=== PATIENT | male | born 1980 | race Caucasian/White ===

== ENCOUNTER 2023-06-23 10:52 | Outpatient (AMB) | payer OTHER, SELFPAY ==
--- NOTE | 2023-06-23 11:06 | A.OFFPC_ITS ---
Vital Signs 06/23/23 11:17 Height 6 ft 4.77 in Weight 196 lb 2 oz BMI 23.4 BP 120/80 Blood Pressure Location Rt brachial Position Sitting Respiration 12 Pulse 75 Pulse Source Pulse Oximeter Temp 97.6 F Temp Source Oral Pulse Oximetry (%) 98 Oxygen Delivery Method Room Air Intake Visit Reasons: est care Intake Note: New patient visit. Difficulty passing stool. 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 Allergies amoxicillin Allergy (Severe, Verified 06/23/23 11:09) hives Tobacco use date assessed: 06/23/23 Dental Screening Dental Screen Date: 06/23/23 Did you have a dental visit in the last 12 months?: Yes Did you have a dental problem in the last 6 months where you did not have access to dental care?: No Was dental information given to patient?: Patient has dentist HPI HPI Comments History of Present Illness Details 42 y/o M Specialists: Health Maintenance: No medical records PFSH Family History (Updated 06/23/23 @ 11:16 by Briana Collins CMA) Father Alcoholism Hodgkin lymphoma Skin cancer Other Mental disorder Social History (Updated 06/23/23 @ 11:13 by Briana Collins CMA) Household Members: Family Household Members Other:: mother, sister, cousin Housing: House Patient Tobacco Use Status: Current everyday Tobacco user Cigarette Packs Per Day: 0.5 Years Smoked: 30 e-Cigarette/Vaping Use: Never Used service: No Current occupational status: employed Current occupation: [employer] Cognitive needs: No Hearing needs: No Vision needs: No Coding
[2023-06-23 11:17] VITALS: BP 120/80; PULSE 75; RESP 12; TEMP 36.4; O2SAT 98; BMI 23.4
--- NOTE | 2023-06-23 11:22 | MHC.PC.OV ---
Vital Signs 06/23/23 11:17 Height 6 ft 4.77 in Weight 196 lb 2 oz BMI 23.4 BP 120/80 Blood Pressure Location Rt brachial Position Sitting Respiration 12 Pulse 75 Pulse Source Pulse Oximeter Temp 97.6 F Temp Source Oral Pulse Oximetry (%) 98 Oxygen Delivery Method Room Air Intake Visit Reasons: est care Intake Note: New patient visit. Hiatal hernia, difficulty passing stools. Allergies amoxicillin Allergy (Severe, Verified 06/23/23 11:29) hives Medication List - Last Reconciled 06/23/23 by Jacinta Cm, [facility] No Known Home Meds Tobacco use date assessed: 06/23/23 HPI HPI Comments History of Present Illness Details 42 y/o M current smoker, colitis, hemorrhoids, kidney stones, hernia Specialists: None Health Maintenance: Vaccines: declines flu Here today with no medical records, Has not seen any medical providers in years. Feels like he has a rectal prolapse, anal leakage and has a hernia in R groin. Feels like he cannot empty his bowels no matter how hard i try, i feel like something is stuck there, like its blown up . Reports colon done in the past. Wearing a belt to help hernia. Unintentional wt loss of 70 lbs. + tobacco use. PFSH Family History (Updated 06/23/23 @ 11:16 by Briana Collins CMA) Father Alcoholism Hodgkin lymphoma Skin cancer Other Mental disorder Social History (Updated 06/23/23 @ 11:13 by Briana Collins CMA) Household Members: Family Household Members Other:: mother, sister, cousin Housing: House Patient Tobacco Use Status: Current everyday Tobacco user Cigarette Packs Per Day: 0.5 Cigarettes Per Day: 15 Years Smoked: 30 e-Cigarette/Vaping Use: Never Used service: No Current occupational status: employed Current occupation: [employer] Cognitive needs: No Hearing needs: No Vision needs: No Questionnaire PHQ-9 Over the last 2 weeks, how often have you been bothered by any of the following problems? 1. Little interest or pleasure in doing things: not at all 2. Feeling down, depressed, or hopeless: not at all 3. Trouble falling or staying asleep, or sleeping too much: not at all 4. Feeling tired or having little energy: not at all 5. Poor appetite or overeating: not at all 6. Feeling bad about yourself - or that you are a failure or have let yourself or your family down: not at all 7. Trouble concentrating on things, such as reading the newspaper or watching television: not at all 8. Moving or speaking so slowly that other people could have noticed. Or the opposite - being so fidgety or restless that you have been moving around a lot more than usual: not at all 9. Thoughts that you would be better off or of hurting yourself in some way: not at all Total score: 0 Depression Screening Interpretation: Negative Depression Screening Done: Yes 34770 - PHQ-9 Billing: Yes Source: Developed by Drs. Renato Ceron, Paige Waldron, Benji Marroquin and colleagues, with an educational brianne from [employer]. Thrive Questionnaire Date Thrive assessed: 06/23/23 I am a: Patient What is your living situation today?: I have a steady place to live Within the past 12 months, did the food you bought not last and you didn't have the money to get more?: Never true Within the past 12 months, did you worry whether your food would run out before you got money to buy more?: Never true Do you have trouble paying for medicines?: No Do you have trouble getting transportation to medical appointments?: No Do you have trouble paying your heating and electricity bill?: Yes Do you have trouble taking care of your child, family member or friend?: No Do you have trouble with day-to-day activities such as bathing, preparing meals, shopping, managing finances, etc.?: No Are you currently unemployed and looking for a job?: No Are you interested in more education?: No Please select the resources that you would like help with: None Currently or been in a relationship where the following occur: no concerns reported THRIVE Score: 1 AUDIT C Alcohol Use Questionnaire (AUDIT-C) 1. How often do you have a drink containing alcohol?: Monthly or less 2. How many drinks containing alcohol do you have on a typical day when you are drinking?: 1 or 2 3. How often do you have six or more drinks on one occasion?: Never Total Score: 1 Score Reviewed/Action Taken: Yes JASON-7 AMB Questionnaire JASON-7 Date JASON - 7 assessed: 06/23/23 Feeling nervous, anxious, or on edge: 0 = Not at all Not being able to stop or control worryin = Not at all Worrying too much about different things: 0 = Not at all Trouble relaxin = Not at all Being so restless that it is hard to sit still: 0 = Not at all Becoming easily annoyed or irritable: 0 = Not at all Feeling afraid as if something awful might happen: 0 = Not at all Total JASON-7 score (0-4 normal; 5-9 mild; 10-14 moderate; 15-21 severe): 0 Source: Developed by Drs. Renato Ceron, Paige Waldron, Benji Marroquin and colleagues, with an educational brianne from [employer]. JASON-7 Assessment Billing JASON-7 Assessment Tool: JASON-7 Assessment 78781 Physical exam (Primary Care) Vital Signs: Last Vital Signs Temp 97.6 F 06/23/23 11:17 Pulse 75 06/23/23 11:17 Resp 12 06/23/23 11:17 BP 120/80 06/23/23 11:17 Pulse Ox 98 06/23/23 11:17 Oxygen Delivery Method Room Air 06/23/23 11:17 BMI result Body Mass Index 23.4 Tobacco/Smoking Status: Tobacco use Status Tobacco use date assessed 06/23/23 06/23/23 11:27 Patient Tobacco Use Status Current everyday Tobacco 06/23/23 11:27 e-Cigarette/Vaping Use Never Used 06/23/23 11:27 Are you ready to quit: No Tobacco cessation counseling provided: Yes Items discussed: Other Relapse Prevention: discussed the importance of a supportive environment, discussed extending NRT, discussed negative mood or depression after quitting, weight gain after smoking is common and discussed dietary, exercise and/or lifestyle changes Number of minutes spent counselin CPT code: 44471 - 4-10 Minutes PHQ-9: PHQ-9 Score PHQ-9: Total score 0 06/23/23 11:40 Depression Screening Interpretation: Negative Thrive Assessment: Date of Thrive Assessment Date Thrive assessed 06/23/23 06/23/23 11:27 Currently or been in a relationship where the following occur: no concerns reported Const Other: awake alert scleras nonicteric MMM RRR LS dim throughout Abd soft, normoactive bs x 4 quads. Reducible inguinal hernias bilat R>L Assessment and Plan Assessment & Plan (1) Colitis: Comment: reports history today reports incomplete bowel emptying, anal leakage, rectal fullness and 70 lb unintentional wt loss he declined to up date labs i dont want to go fishing right now plan: stat referral to GI Code(s): K52.9 - Noninfective gastroenteritis and colitis, unspecified (2) Current smoker: Comment: education provided Code(s): F17.200 - Nicotine dependence, unspecified, uncomplicated (3) Inguinal hernia: Comment: refer to Gen Surg for eval and tx. I advised him that f/u with GI should take precedent over this referral. He can cont to wear belt and avoid straining Code(s): K40.90 - Unilateral inguinal hernia, without obstruction or gangrene, not specified as recurrent Qualifiers: Obstruction and gangrene presence: with obstruction but without gangrene Laterality: bilateral Recurrence: non-recurrent Qualified Code(s): K40.00 - Bilateral inguinal hernia, with obstruction, without gangrene, not specified as recurrent Plan: This note is constructed using voice recognition software. While every effort has been made to ensure accuracy in manager highway, still errors may have been included Sometimes, these errors may affect the content or meaning of the given sentence . Total time spent caring for the patient today was 45 minutes. This includes time spent before the visit reviewing the chart, time spent during the visit, and time spent after the visit on documentation Plan wishes to return only as needed. Orders: Referrals General Surgery Referral K40.90 - Unilateral inguinal hernia, without obstruction or gangrene, not specified as recurrent Gastroenterology Referral F17.200 - Nicotine dependence, unspecified, uncomplicated, K52.9 - Noninfective gastroenteritis and colitis, unspecified Patient Instructions: Smoking Cessation How to Quit There are a lot of ways to quit smoking and many resources to help you. Family members, friends, and co-workers may be supportive or encouraging, but to be successful the desire and commitment to quit must be your own. Most people who have been able to successfully quit smoking made at least one unsuccessful attempt in the past. Try not to view past attempts to quit as failures, but rather as learning experiences. Stopping smoking or using smokeless tobacco is difficult, but anyone can do it. Know the symptoms to expect when you stop. Common symptoms include: ? An intense craving for nicotine ? Anxiety, tension, restlessness, frustration, or impatience ? Difficulty concentrating ? Drowsiness or trouble sleeping, as well as bad dreams and nightmares ? Drowsiness and trouble sleeping ? Headaches ? Increased appetite and weight gain ? Irritability or depression How severe your symptoms are depends on how long you smoked and how many cigarettes you smoked each day. Feel ready to quit? ? First and foremost, set a quit date and quit completely on that day. Before your quit date, you may begin reducing your cigarette use. But remember, there is no safe level of cigarette smoking. ? List the reasons why you want to quit. Include both short- and long-term benefits. ? Identify the times you are most likely to smoke. For example, do you tend to smoke when feeling stressed or down? When out at night with friends? While drinking coffee or alcohol? When bored? While driving? Right after a meal or sex? During a work break? While watching TV or playing cards? When you are with other smokers? ? Let all of your friends, family, and co-workers know of your plan to stop smoking and your quit date. Just being aware that they know what you're going through can be helpful, especially when you are grumpy. ? Get rid of all your cigarettes just before the quit date, and clean out anything that smells like smoke, such as clothes and furniture. Make a plan about what you will do instead of smoking at those times when you are most likely to smoke. ? Be as specific as possible. For example, drink tea instead of coffee -- tea may not trigger the desire for a cigarette. Or, take a walk when you feel stressed. ? Remove ashtrays and cigarettes from the car. Place pretzels or hard candies there instead. Pretend-smoke with a straw. ? Find activities that focus your hands and mind but are not taxing or fattening. Computer games, solitaire, knitting, sewing, and crossword puzzles may help. ? If you normally smoke after eating, find other ways to end a meal. Play a tape or CD, eat a piece of fruit, get up and make a phone call, or take a walk (a good distraction that also lopez calories). Make other changes in your lifestyle. ? Change your daily schedule and habits. Eat at different times or eat several small meals instead of three large ones. Sit in a different chair or even a different room. ? Satisfy your oral habits by eating celery or other low-calorie snack, chewing sugarless gum, or sucking on a cinnamon stick. ? Go to public places and restaurants where smoking is prohibited or restricted. ? Eat regular meals and don't eat too much candy or sweet things. ? Get more exercise. Take walks or ride a bike. Exercise helps relieve the urge to smoke. Set short-term quitting goals and reward yourself when you meet them. ? Every day, put the money you normally spend on cigarettes in a jar. Then buy something pleasurable after a period of time. ? Try not to think about all the days ahead you will need to avoid smoking. Take it one day at a time. ? Even one puff or one cigarette will make your desire for more cigarettes even stronger. However, it is normal to make mistakes. So even if you have one cigarette, you don't need to take the next one. Other tips to help you quit smoking and stick to it: ? Enroll in a smoking cessation program (hospitals, health departments, community centers, and work sites often offer programs). Learn about self-hypnosis or other techniques. ? Ask your health care provider about prescription medications that are safe and appropriate for you. ? Find out about nicotine patches, gum, and sprays. The [place]'s web site -- www.cancer.org -- is an excellent resource for smokers who are trying to quit, and the [employer] [place] [employer] can help some smokers kick the habit. Above all, don't get discouraged if you aren't able to quit smoking the first time. Nicotine addiction is a hard habit to break. Try something different next time. Develop new strategies, and try again. Many people take several attempts to finally kick the habit. Review Flu Vaccine not done: patient reason Coding Level of Care Code New Pt Level 4 (57129) Diagnoses Colitis K52.9 Current smoker F17.200 Non-recurrent bilateral inguinal hernia with obstruction without gangrene K40.00 Obstruction and gangrene presence: with obstruction but without gangrene Laterality: bilateral Recurrence: non-recurrent Additional Codes JASON-7 Assessment Billing - JASON-7 Assessment Tool: JASON-7 Assessment 38581 ([id number]) Vital Signs *Quality* - CPT code: 64074 - 4-10 Minutes ([id number])
== END 2023-06-23 11:44 | disposition home or self-care (01) ==
PROVIDERS: Visit Provider Nurse Practitioner Family
DX: K52.9 Noninfective gastroenteritis and colitis, unspecified (principal); F17.200 Nicotine dependence, unspecified, uncomplicated; K40.00 Bilateral inguinal hernia, with obstruction, without gangrene, not specified as recurrent
CPT/HCPCS: 99204

== ENCOUNTER 2023-07-10 13:37 | Outpatient (REF) | payer OTHER, SELFPAY ==
[2023-07-10 15:21] LABS: Hematocrit 44.2 % (42.0-52.0); Hemoglobin 15.1 g/dl (14.0-18.0); Mean Corpuscular HGB Conc 34.2 g/dl (31.0-36.0); Mean Corpuscular Hemoglobin 30.1 pg (27.0-33.0); Mean Corpuscular Volume 88.2 fL (80.0-98.0); Mean Platelet Volume 10.5 fL (9.4-12.4); Platelet Count 232 X10*3/uL (160-400); Red Blood Count 5.01 X10*6/uL (4.60-5.80); Red Cell Distribution Width 13.4 % (11.0-16.0); White Blood Count 11.6 X10*3/uL (4.8-10.8)
[2023-07-10 15:52] LABS: Alanine Aminotransferase 9 U/L (0-40); Albumin Level 4.1 g/dL (3.5-5.0); Alkaline Phosphatase 64 U/L (39-117); Anion Gap 10 (12-20); Aspartate Amino Transferase 12 U/L (5-37); Bilirubin Total 0.5 mg/dL (0.0-1.0); Blood Urea Nitrogen 15 mg/dL (9-16); C Reactive Protein < 0.10 mg/dL (< or = 0.50); Calcium 9.4 mg/dL (8.4-10.2); Carbon Dioxide 27 mmol/L (22-29); Chloride 108 mmol/L (96-108); Estimated Glomerular Filt Rate > 60; Glucose Random 92 mg/dL (60-115); Iron 97 mcg/dL (45-160); Percent Iron Saturation 39 % (15-50); Potassium 3.7 mmol/L (3.3-5.1); Sodium 141 mmol/L (135-145); Total Iron Binding Capacity 250 mcg/dL (228-428); Total Protein 7.1 g/dL (6.5-8.0); Unsaturated Iron Binding 153 ug/dL
[2023-07-10 16:09] LABS: TSH reflex Free T4 1.22 uIU/mL (0.32-4.0)
[2023-07-10 16:22] LABS: Folate 7.6 ng/mL (> or = 4.0); Vitamin B12 374 pg/mL (200-900)
[2023-07-11 04:08] LABS: HBS Num1 0.62 mIU/mL (0-7.99); HBc Num1 0.11 S/CO (0.00-0.79); HBsAGNum1 0.32 S/CO (0.00-0.99); HIV AB/AG Nonreactive (Nonreactive); HIV Num 1 0.04 S/CO (0.00-0.99); Hepatitis B Core Antibody Nonreactive (Nonreactive); Hepatitis B Surface Antigen Negative (Negative); ~HepC Num1 0.15 S/CO (0.00-0.79); ~Hepatitis B Surface Antibody NONREACTIVE (Nonreactive); ~Hepatitis C Antibody Nonreactive (Nonreactive)
[2023-07-11 04:15] LABS: Hepatitis A Antibody IgG Nonreactive (Nonreactive); ~Hepatitis A Antibody IgG 0.34 S/CO (0.00-0.99)
[2023-07-12 20:24] LABS: Immunoglobulin A 156 mg/dL (47-310); Immunoglobulin G 1241 mg/dL (600-1640)
[2023-07-12 23:04] LABS: TS Negative Control Passed; TS Panel A 0; TS Panel B 0; TS Positive Control Passed; TSpotTB Negative (Negative)
[2023-07-13 21:47] LABS: Transglutaminase IgA <1.0 U/mL
[2023-07-17 10:09] LABS: Phosphatidylethanol 16:0-18:1 NEGATIVE; Phosphatidylethanol 16:0-18:2 NEGATIVE
== END 2023-07-10 13:38 | disposition home or self-care (01) ==
LOC: HO.LAB 13:37
PROVIDERS: Visit Provider Internal Medicine
DX: Z11.4 Encounter for screening for human immunodeficiency virus [HIV] (principal); Z11.1 Encounter for screening for respiratory tuberculosis; R15.9 Full incontinence of feces; R10.9 Unspecified abdominal pain; K52.9 Noninfective gastroenteritis and colitis, unspecified; K62.3 Rectal prolapse
CPT/HCPCS: 36415; 80053; 80321; 82607; 82746; 82784; 83540; 84443; 85027; 86140; 86364; 86481; 86704; 86706; 86708; 86803; 87340; 87389; 99202

== ENCOUNTER 2023-07-10 13:37 | Outpatient (AMB) | payer OTHER, SELFPAY ==
--- NOTE | 2023-07-10 13:41 | MHC.OFFVIS ---
Intake Vital Signs 07/10/23 13:42 Height 6 ft 4 in Weight 194 lb 0.108 oz BMI 23.6 BP 139/71 Blood Pressure Location Lt brachial Position Sitting Pulse 97 Intake Visit Reasons: Gastroenteritis, weight loss Intake Note: Chava presents in the office as a new patient for gastroenteritis. CC: He states that he does not have pains but he just states his system is all messed up. He states that he has constant clear rectum leakage, slow moving, he thinks he has massive hemorrhoids. It is hard to get up from sitting. He has issues with foods but not sure what foods and he has to go to the bathroom 90% of the time. 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 Reports years of abd discomfort assoc stools fluctuating from hard to soft. Reports main issue is having to strain a lot to pass any bowel movement. Often has to go 3-4 times during the day to feel that rectum is completely emptied. Has been noticing clear/mucus discharge per anal for at least the last for 5 years. No stool or blood noted on underwear. 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 Also reports around 50 lb weight loss which is over many years - reports has been losing weight loss gradually over the past 5 years mainly as got a house with stairs, and started eating less, to avoid passing mucus per rectum. Given longstanding complaints, he has seen GI in the past, almost 10 years ago. Had a colonoscopy at that time, and recalls being told he had colitis but does not report any history of steroid use, or any other chronic medication use for this. Smokes a pack a day. [facility] History Hx of colonoscopy Family History Father Alcoholism Hodgkin lymphoma Skin cancer Other Mental disorder Social History Household Members: Family Household Members Other:: mother, sister, cousin Housing: House Patient Tobacco Use Status: Current everyday Tobacco user Cigarette Packs Per Day: 0.5 Cigarettes Per Day: 15 Years Smoked: 30 e-Cigarette/Vaping Use: Never Used service: No Current occupational status: employed Current occupation: [employer] Cognitive needs: No Hearing needs: No Vision needs: No Review of Systems Const All systems reviewed & are unremarkable except as noted in HPI and below Physical Exam Vital Signs: Last Vital Signs Pulse 97 07/10/23 13:42 BP 139/71 07/10/23 13:42 BMI result Body Mass Index 23.6 Slightly pale appearing, no acute distress Nonicteric Abdomen is soft, nontender Rectal exam: (Piedad Sheriff MA present to senior master scheduler): Full thickness rectal prolapse on exam prolapsing almost 2 inches from anal opening - nonreducible manually on exam today Assessment & Plan Assessment & Plan (1) Fecal incontinence: Code(s): R15.9 - Full incontinence of feces (2) Abdominal pain: Code(s): R10.9 - Unspecified abdominal pain (3) Colitis: Code(s): K52.9 - Noninfective gastroenteritis and colitis, unspecified (4) Rectal prolapse: Code(s): K62.3 - Rectal prolapse Plan Exam consistent with full-thickness rectal prolapse. Unable to manually reduce on exam today. He has already been referred to surgery for question of inguinal hernia, will message them a heads up about rectal prolapse as well. He was advised to avoid straining. To take fiber and MiraLax daily to help with consistency and evacuation of the stool. Elevate legs while passing BMs. He should also undergo functional and anatomical evaluation of pelvic floor down the arlen. Low clinical suspicion for chronic colitis at this time based on history describe, however will start with labs including fecal calprotectin, celiac, hyperthyroidism. In addition, weight loss appears to be slow and likely due to lifestyle change, but will rule out chronic infections such as hepatitis, HIV, T spot ordered. Follow-up in 8 weeks to review results and further management Orders: Orders Complete Blood Count no Diff 07/10/23 R10.9 - Unspecified abdominal pain, R15.9 - Full incontinence of feces Comprehensive Met. Panel 07/10/23 R10.9 - Unspecified abdominal pain, R15.9 - Full incontinence of feces Hepatitis A IgG 07/10/23 R10.9 - Unspecified abdominal pain, R15.9 - Full incontinence of feces Hepatitis B Core Antibody 07/10/23 R10.9 - Unspecified abdominal pain, R15.9 - Full incontinence of feces Hepatitis B Surface Antibody 07/10/23 R10.9 - Unspecified abdominal pain, R15.9 - Full incontinence of feces Hepatitis C Antibody 07/10/23 R10.9 - Unspecified abdominal pain, R15.9 - Full incontinence of feces T Spot TB 07/10/23 R10.9 - Unspecified abdominal pain, R15.9 - Full incontinence of feces Transglutaminase IgA 07/10/23 R10.9 - Unspecified abdominal pain, R15.9 - Full incontinence of feces TSH reflex Free T4 07/10/23 R10.9 - Unspecified abdominal pain, R15.9 - Full incontinence of feces Vitamin B12 and Folate 07/10/23 R10.9 - Unspecified abdominal pain, R15.9 - Full incontinence of feces Calprotectin, Fecal 07/11/23 R10.9 - Unspecified abdominal pain, R15.9 - Full incontinence of feces Phosphatidylethanol, Blood 07/10/23 R10.9 - Unspecified abdominal pain, R15.9 - Full incontinence of feces CT abdomen pelvis w IV con 07/10/23 R10.9 - Unspecified abdominal pain, R15.9 - Full incontinence of feces Hepatitis B Surface Antigen 07/10/23 R10.9 - Unspecified abdominal pain, R15.9 - Full incontinence of feces HIV Ab/Ag 07/10/23 R10.9 - Unspecified abdominal pain, R15.9 - Full incontinence of feces Immunoglobulin A 07/10/23 R10.9 - Unspecified abdominal pain, R15.9 - Full incontinence of feces Immunoglobulin G 07/10/23 R10.9 - Unspecified abdominal pain, R15.9 - Full incontinence of feces IRON PROFILE 07/10/23 R10.9 - Unspecified abdominal pain, R15.9 - Full incontinence of feces C Reactive Protein 07/10/23 R10.9 - Unspecified abdominal pain, R15.9 - Full incontinence of feces Coding Level of Care Code New Pt Level 5 (39912) Diagnoses Fecal incontinence R15.9 Abdominal pain R10.9 Colitis K52.9 Rectal prolapse K62.3
[2023-07-10 13:42] VITALS: BP 139/71; PULSE 97; BMI 23.6
== END 2023-07-10 14:22 | disposition home or self-care (01) ==
PROVIDERS: Visit Provider Internal Medicine
DX: R15.9 Full incontinence of feces (principal); K52.9 Noninfective gastroenteritis and colitis, unspecified; K62.3 Rectal prolapse
CPT/HCPCS: 99204

== ENCOUNTER 2023-07-11 09:31 | Outpatient (REF) | payer OTHER, SELFPAY ==
[2023-07-16 17:28] LABS: Calprotectin, Fecal 13 mcg/g
== END 2023-07-11 09:32 | disposition home or self-care (01) ==
LOC: HO.LNP 09:31
PROVIDERS: Visit Provider Internal Medicine
DX: R10.9 Unspecified abdominal pain (principal); R15.9 Full incontinence of feces
CPT/HCPCS: 83993

== ENCOUNTER 2023-08-03 12:55 | Outpatient (AMB) | payer OTHER, SELFPAY ==
--- NOTE | 2023-08-03 12:58 | A.OFFVIS_ITS ---
Vital Signs 08/03/23 13:03 Height 6 ft 4 in Weight 195 lb BMI 23.7 BP 117/56 L Blood Pressure Location Rt brachial Position Sitting Pulse 71 Intake Visit Reasons: Unilateral inguinal hernia Intake Note: Patient referred by Jacinta Cm for unilateral hernia. Patient c/o: reports bilateral inguinal hernias, reports anal prolapse, reports bulges, reducible, left groin hernia appears intermittently, reports right groin hernia is constantly bothersome. 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 Bilateral inguinal hernias 2. Question of rectal prolapse He has had hernias left and right for a proximally 1 year's time. Right is larger and more symptomatic. Patient has a longstanding history of chronic constipation which he also thinks is responsible for his supposed rectal prolapse. Patient otherwise has no significant past medical problems. Chart was reviewed and patient evaluated [facility] Surgical History Hx of colonoscopy Family History Father Alcoholism Hodgkin lymphoma Skin cancer Other Mental disorder Social History Household Members: Family Household Members Other:: mother, sister, cousin Housing: House Patient Tobacco Use Status: Current everyday Tobacco user Cigarette Packs Per Day: 0.5 Cigarettes Per Day: 15 Years Smoked: 30 e-Cigarette/Vaping Use: Never Used service: No Current occupational status: employed Current occupation: [employer] Cognitive needs: No Hearing needs: No Vision needs: No Physical Exam Vital Signs: Last Vital Signs Pulse 71 08/03/23 13:03 BP 117/56 L 08/03/23 13:03 BMI result Body Mass Index 23.7 Const Other: Tall slender male wearing a truss for his hernia. Chest Other: Chest breath sounds bilaterally, HS 1 in 2 GI Other: Patient was examined both supine and standing with Valsalva. Abdomen is soft. No umbilical hernia. Very large right inguinal hernia, reducible. Moderately sized left inguinal hernia, reducible Rectal exam demonstrates what appears to be prolapsed internal hemorrhoids. These do not have the classic concentric ring pattern more consistent with a rectal prolapse.. Assessment & Plan Assessment & Plan (1) Prolapsed internal hemorrhoids, grade 4: Code(s): K64.3 - Fourth degree hemorrhoids Category: Surgical (2) Bilateral inguinal hernia: Code(s): K40.20 - Bilateral inguinal hernia, without obstruction or gangrene, not specified as recurrent Category: Surgical Plan Because they are more symptomatic, at present, arrangements were made for bilateral open right and left inguinal hernia repair with mesh. Risks, benefits , alternatives of procedure reviewed the patient included but not limited to bleeding, infection, recurrence, numbness, pain, scarring and the patient wished to proceed. All questions answered. Once this has convalesced from this, the prolapse internal rides will be addressed. Coding Level of Care Code New Pt Level 5 (46799) Diagnoses Prolapsed internal hemorrhoids, grade 4 K64.3 Bilateral inguinal hernia K40.20
[2023-08-03 13:03] VITALS: BP 117/56; PULSE 71; BMI 23.7
== END 2023-08-03 13:15 | disposition home or self-care (01) ==
PROVIDERS: Referring Provider Nurse Practitioner Family; Visit Provider Surgery
DX: K64.3 Fourth degree hemorrhoids (principal); K40.20 Bilateral inguinal hernia, without obstruction or gangrene, not specified as recurrent
CPT/HCPCS: 99204

== ENCOUNTER → 2023-08-03 12:55 | Outpatient (BNVA) | payer OTHER, SELFPAY | PROVIDERS: Referring Provider Nurse Practitioner Family; Visit Provider Surgery | DX: K64.3 Fourth degree hemorrhoids (principal); K40.20 Bilateral inguinal hernia, without obstruction or gangrene, not specified as recurrent | CPT/HCPCS: 99202 ==

== ENCOUNTER 2023-09-10 06:59 | Day surgery (SDC) | payer OTHER, SELFPAY ==
[2023-09-08 06:59] VITALS: BMI 23.9
--- NOTE | 2023-09-08 15:14 | HO.ANESPROP2 ---
Documented by User: Antoinette Pedersen NP 09/08/23 15:15 HPI - Anesthesia Eval Consult details Narrative: 42yo M for Bilateral OPEN Hernia Inguinal Reducible with mesh PMFSH Active Problems Active Problems: All Active Problems Bilateral inguinal hernia (Acute) Prolapsed internal hemorrhoids, grade 4 (Acute) Rectal prolapse (Acute) Fecal incontinence (Acute) Abdominal pain (Acute) Colitis (Acute) Current smoker (Acute) Inguinal hernia (Acute) Family History Family History Father Alcoholism Hodgkin lymphoma Skin cancer Other Mental disorder Surgical History Surgical History Hx of colonoscopy Social History Social History Household Members: Family Household Members Other:: mother, sister, cousin Housing: House Patient Tobacco Use Status: Current everyday Tobacco user Tobacco use type: Cigarette Cigarette Packs Per Day: 0.5 Cigarettes Per Day: 15 Years Smoked: 30 Smoked in Last 30 Days: Yes e-Cigarette/Vaping Use: Never Used Patient Interested in Nicotine Replacement: No Substance Use Frequency: Chronic Longstanding Are you DNR?: No Advance Directives: No Advance Directives Information Provided: Yes Nutrition Risks: No Nutritional Risk service: No Current occupational status: employed Current occupation: [employer] Cognitive needs: No Hearing needs: No Vision needs: No Meds Allergies Allergy/AdvReac Type Severity Reaction Status Date / Time amoxicillin Allergy Severe hives Verified 09/10/23 07:25 Exam Height,Weight and Vital Signs: Height 6 ft 4 in Weight 88.904 kg Pertinent Lab Results Pertinent Lab Results: Laboratory Tests 07/10/23 14:53 WBC 11.6 H Hgb 15.1 Hct 44.2 Plt Count 232 Sodium 141 Potassium 3.7 Chloride 108 Carbon Dioxide 27 BUN 15 Creatinine 0.87 Assessment and Plan Assessment Anesthesia Assessment: Chart Reviewed Documented by User: Jeff Freeman MD 09/10/23 08:20 PMFSH Family History Family History Father Alcoholism Hodgkin lymphoma Skin cancer Other Mental disorder Family history of problems with anesthesia: No Surgical History Surgical History Hx of colonoscopy History of Problems with Anesthesia: No Social History Social History Household Members: Family Household Members Other:: mother, sister, cousin Housing: House Patient Tobacco Use Status: Current everyday Tobacco user Tobacco use type: Cigarette Cigarette Packs Per Day: 0.5 Cigarettes Per Day: 15 Years Smoked: 30 Smoked in Last 30 Days: Yes e-Cigarette/Vaping Use: Never Used Patient Interested in Nicotine Replacement: No Substance Use Frequency: Chronic Longstanding Are you DNR?: No Advance Directives: No Advance Directives Information Provided: Yes Nutrition Risks: No Nutritional Risk service: No Current occupational status: employed Current occupation: [employer] Cognitive needs: No Hearing needs: No Vision needs: No Meds Allergies Allergy/AdvReac Type Severity Reaction Status Date / Time amoxicillin Allergy Severe hives Verified 09/10/23 07:25 Exam Airway Mallampati Class: I TM Dist: >3cm Neck ROM: Full Loose/Missing/Broken Teeth: No (states self applied dental filling, denies it being loose) Heart: rrr Lungs: clear but diminished Assessment and Plan Assessment Anesthesia Assessment: Anesthesia Plan Discussed and Smoking Cess. Discussed Final Anesthetic Review Family History of Problems with Anesthesia: No History of Problems with Anesthesia: No NPO: Yes ASA Class: II Final Preanesthetic Review: No Changes in Pt Med Stat, Meds/Allgs Chart Reviewed, Consent Obtained/Reviewed and Anes Risks/Benef Reviewed Patient Risk: Intermediate Procedure Risk: Low Anesthetic Plan Anesthetic Plan: GA Disposition: Standard PACU
--- NOTE | 2023-09-09 07:59 | MHC.SHP ---
Pre-Procedural Eval Section A - 24 Hr Update-Section A only Date of Service: 09/10/23 The patient is an INPATIENT: No Changes since office visit: No Cold of Flu in the past 2 weeks, No New Medical Problems, No Changes in Medication and No Patient answered all questions Section B - Complete if H&P > 30 days Chief Complaint: Bilateral inguinal hernia, without obstruction Allergies: Allergies Allergy/AdvReac Type Severity Reaction Status Date / Time amoxicillin Allergy Severe hives Verified 08/03/23 13:05 Plan I have reviewed the history and physical and performed a pertinent physical examination on my patient. No changes have occurred unless specified. Time Spent With Patient Time: Total time managing care of this patient today ____ minutes.
[2023-09-10 07:10] VITALS: BMI 23.9
[2023-09-10] MEDS: Lactated Ringers 1,000 ML 100 ML IVCONT (07:17)
[2023-09-10] MEDS: Albuterol Sulfate (0.083%) 2.5 MG/3 ML VIAL.NEB INHALE (07:39)
[2023-09-10 07:42] VITALS: BP 120/77; PULSE 72; RESP 18; TEMP 36.7; O2SAT 99
[2023-09-10 09:44] VITALS: BP 115/68; PULSE 62; RESP 19; TEMP 36.1; O2SAT 100
[2023-09-10 09:49] VITALS: BP 114/78; PULSE 59; RESP 17; O2SAT 100
--- NOTE | 2023-09-10 09:50 | W.PM.OPN ---
Operative Note Operative Note Date of Service: 09/10/23 Narrative: Preoperative diagnosis: [] Bilateral symptomatic inguinal herniae Postop diagnosis: [] The same Procedure [] bilateral open inguinal herniorrhaphy with Bard mesh Surgeon: [] Donnie Naval Aircrewman: [] Jeana Type of Anesthesia: [] General Indication for surgery: [] Bilateral large indirect inguinal herniae. No evidence of direct hernias. Findings: [] Patient was brought to the operating room, placed on operative table in supine position, after an adequate level of general anesthesia was induced, bilateral groin area and abdomen were prepped and draped in usual sterile fashion. Each hernia was approached using a small para inguinal incision, and carried down through skin, subcutaneous tissue, Candace's fascia. Ilioinguinal nerve was respectively preserved throughout the procedure. Each spermatic cord was identified and brought onto the field. Exploration of the cord demonstrated large indirect inguinal hernia sacs which were from the cord and respectively reduced. No direct hernia was demonstrated. A Bard plug was placed in each indirect defect and sutured inferiorly to the inguinal ligament, and superiorly to the transversalis fascia using interrupted 0 Ethibond suture. Each mesh was in good position with no tension or gaps at completion. Each wound was irrigated, and secured hemostasis. Each was closed in the following manner; external oblique fascia was closed using running 2-0 Vicryl suture. Candace's fascia was reapproximated using interrupted 3-0 Vicryl sutures. Interrupted inverted deep dermal 3-0 Vicryl sutures followed by running subcuticular 4-0 Vicryl sutures were placed. Steri-Strips and sterile dressings were applied. Wounds were infiltrated at the beginning at the end with 0.5% Marcaine at completion. Sponge, needle, and instrument counts reported correct. Patient tolerated the procedure well and emerged from anesthesia stable condition. Bilateral testicles were intrascrotal at completion
[2023-09-10 09:54] VITALS: BP 119/77; PULSE 61; RESP 18; O2SAT 100
[2023-09-10 09:59] VITALS: BP 104/68; PULSE 60; RESP 15; O2SAT 98
[2023-09-10 10:14] VITALS: BP 116/75; PULSE 61; RESP 14; TEMP 36.1; O2SAT 99
== END 2023-09-10 10:53 | disposition home or self-care (01) ==
PROVIDERS: PCP Nurse Practitioner Family; Visit Provider Surgery
PROC: (CPT 49505; principal; 2023-09-10 08:40)
DX: K40.20 Bilateral inguinal hernia, without obstruction or gangrene, not specified as recurrent (principal); Z88.0 Allergy status to penicillin
CPT/HCPCS: 49505; C1781; J0131; J0736; J2250; J2704; J2795; J3010

== ENCOUNTER → 2023-09-10 06:59 | Outpatient (BNV) | payer OTHER, SELFPAY | PROVIDERS: PCP Nurse Practitioner Family; Visit Provider Surgery | DX: K40.20 Bilateral inguinal hernia, without obstruction or gangrene, not specified as recurrent (principal) | CPT/HCPCS: 49505 ==

== ENCOUNTER 2023-09-21 10:48 | Outpatient (AMB) | payer OTHER, SELFPAY ==
--- NOTE | 2023-09-21 10:53 | A.OFFVIS_ITS ---
Intake Visit Reasons: S/P OPEN repair bilat. inguinal hernia w/mesh Intake Note: Patient here s/p open repair bilateral inguinal hernia w/ Bard mesh. Reports incisions healing well. Patient c/o: ph[place] pain on RUQ and lower back. States pain comes and goes. SX: 09-10-2023. Covering And Lining Supervisor Required: No Accompanied by: Self / Same As Patient Allergies amoxicillin Allergy (Severe, Verified 09/21/23 10:54) hives HPI Comments Details: Patient presents for follow-up. He has minimal incisional discomfort. He is increasing his activity level. He has tolerating a diet. He is having regular bowel habits. COUNT INCLUDES THE [facility] Surgical History (Updated 09/21/23 @ 11:03 by Grant Fields MD) Bilateral inguinal hernia (09/10/23) Hx of colonoscopy Family History Father Alcoholism Hodgkin lymphoma Skin cancer Other Mental disorder Social History Household Members: Family Household Members Other:: mother, sister, cousin Housing: House Patient Tobacco Use Status: Current everyday Tobacco user Tobacco use type: Cigarette Cigarette Packs Per Day: 0.5 Cigarettes Per Day: 15 Years Smoked: 30 e-Cigarette/Vaping Use: Never Used service: No Current occupational status: employed Current occupation: [employer] Cognitive needs: No Hearing needs: No Vision needs: No Physical Exam GI Other: Abdomen is soft. Both wounds clean dry and intact healing very well Assessment & Plan Assessment & Plan (1) Postop check: Code(s): Z09 - Encounter for follow-up examination after completed treatment for conditions other than malignant neoplasm Category: Surgical Plan Patient has been given local instructions including avoiding strenuous activities for next few weeks time and will otherwise follow-up p.r.n.. All questions answered. Coding Level of Care Code Global (57571) Diagnoses Postop check Z09
== END 2023-09-21 10:59 | disposition home or self-care (01) ==
PROVIDERS: Visit Provider Surgery
DX: Z09 Encounter for follow-up examination after completed treatment for conditions other than malignant neoplasm (principal)
CPT/HCPCS: 99024

== ENCOUNTER → 2023-09-21 10:48 | Outpatient (BNVA) | payer OTHER, SELFPAY | PROVIDERS: Visit Provider Surgery | DX: Z09 Encounter for follow-up examination after completed treatment for conditions other than malignant neoplasm (principal); Z87.19 Personal history of other diseases of the digestive system | CPT/HCPCS: 99212 ==

== ENCOUNTER 2023-09-28 08:05 | Outpatient (REF) | payer OTHER, SELFPAY ==
--- NOTE | ~2023-09-28 | CT_ITS ---
EXAMINATION: CT ABDOMEN AND PELVIS WITH CONTRAST CLINICAL INFORMATION: Abdominal pain. COMPARISON: None available. TECHNIQUE: Multidetector volumetric images were obtained from the superior aspect of the liver through the pubic symphysis following administration 85 mL of Omnipaque 350 intravenous contrast. Sagittal and coronal reformatted images were obtained on the technologist's workstation. Oral contrast: No This CT examination was performed using dose optimization techniques as appropriate, variously including the following: *Automated exposure control *Adjustment of mA and/or kV according to patient size (this includes techniques or standardized protocols for targeted exams where dose is matched to indication/reason for exam; i.e. extremities or head) *Use of iterative reconstruction technique DLP: 369 mGy-cm FINDINGS: LUNG BASES: The visualized lung bases are unremarkable. LIVER, GALLBLADDER, AND BILIARY TREE: The liver is enlarged at 19.7 cm in cephalocaudad dimension. Tiny cyst is present in the left lobe of the liver just beneath the hemidiaphragm (3:7) with a few other even smaller hypodensities elsewhere consistent with cysts. Liver shape is normal. Attenuation difficult to manager hospital after IV contrast but suspect that it is decreased. No focal hepatic lesion or biliary ductal dilatation is present. The gallbladder is unremarkable with no evidence of radiopaque gallstones, gallbladder wall thickening, or obvious pericholecystic inflammatory changes. PANCREAS: Unremarkable. SPLEEN: Unremarkable. ADRENAL GLANDS: Unremarkable. KIDNEYS AND URETERS: The kidneys are normal in size, shape, and attenuation. A benign right upper pole 2.9 cm Bosniak class I renal cyst is noted which requires no additional imaging or followup. No solid renal masses are seen. No hydronephrosis, hydroureter, or calculi seen. No perinephric stranding. BLADDER: Unremarkable. GASTROINTESTINAL TRACT: The small and large bowel are unremarkable. The appendix is unremarkable. ABDOMINAL WALL: Small bilateral inguinal hernias are present bilaterally containing a small amount of fluid. There is a more defined fluid collection seen in the right groin measuring 3.2 x 1.8 x 2.5 cm (3:74 and 5:70). I suspect that this patient may have undergone plug repair of bilateral inguinal hernias and these findings may be secondary to that. Please correlate with surgical history. LYMPH NODES: No retroperitoneal lymphadenopathy. VASCULAR: Calcific atherosclerotic changes are present in the aorta and iliofemoral vessels. There is a 3.1 cm infrarenal abdominal aortic aneurysm present (3:36). PELVIC VISCERA: The prostate and seminal vesicles are unremarkable. OSSEOUS STRUCTURES: Degenerative changes are seen at L5-S1. CT/CT abdomen pelvis w IV con IMPRESSION: 1. A cause for the patient's abdominal pain has not been found. 2. Incidental note made of an enlarged fatty liver, benign hepatic and renal cysts which need no further imaging or followup, 3.1 cm infrarenal abdominal aortic aneurysm and degenerative changes L5-S1. 3. Small bilateral inguinal hernias containing a small amount of fluid. There is a more defined fluid collection in the right groin measuring 3.2 x 1.8 x 2.5 cm. Fleischner guidelines were followed.
[2023-09-28] MEDS: iohexoL 350 MG/ML 100 ML INFUS..BTL 85 ML IV (11:21)
== END 2023-09-28 08:06 | disposition home or self-care (01) ==
LOC: HO.CT 08:05
PROVIDERS: PCP Nurse Practitioner Family; Visit Provider Internal Medicine
DX: R10.9 Unspecified abdominal pain (principal); R15.9 Full incontinence of feces
CPT/HCPCS: 74177; Q9967

== ENCOUNTER 2024-05-27 09:19 | Outpatient (AMB) | payer OTHER, SELFPAY ==
--- NOTE | 2024-05-27 09:25 | A.OFFVIS_ITS ---
Vital Signs 05/27/24 09:26 Height 6 ft 6 in Weight 185 lb 3.013 oz BMI 21.4 BP 145/78 H Blood Pressure Location Lt brachial Position Sitting Pulse 111 H Intake Visit Reasons: f/u Fatty Liver Intake Note: Chava presents in the office as a follow up for fatty liver. CC: states that he takes pepto OTC for his stomach and digestive issues. No pains but he has discomfort and the urge to go ALL the time. He states that he cannot has a BM in a sitting position. He states he has his hernia surgery but have not been back since - he has clear leakage constantly. He has not had the hemorrhoid surgery yet. He takes fiber ad miralax but he states that dry rachel seems to help the most. Social Service Coordinator Required: No Allergies amoxicillin Allergy (Severe, Verified 05/27/24 09:28) hives HPI Comments Details: 42y.o M with PMH of colitis who is here for GI complaints. Reports years of abd discomfort assoc stools fluctuating from hard to soft. Reports main issue is having to strain a lot to pass any bowel movement. Often has to go 3-4 times during the day to feel that rectum is completely emptied. Has been noticing clear/mucus discharge per anal for at least the last for 5 years. No stool or blood noted on underwear. 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 Also reports around 50 lb weight loss which is over many years - reports has been losing weight loss gradually over the past 5 years mainly as got a house with stairs, and started eating less, to avoid passing mucus per rectum. Given longstanding complaints, he has seen GI in the past, almost 10 years ago. Had a colonoscopy at that time, and recalls being told he had colitis but does not report any history of steroid use, or any other chronic medication use for this. Smokes a pack a day. 05/27/24: Was lost to follow up. Here to follow up on fecal incontinence. Reports no abd pain, change in bowel habits. Previous assessment consistent rectal prolapse vs ? hemorrhoidal prolapse. [facility] Surgical History (Updated 09/21/23 @ 11:03 by Grant Fields MD) Bilateral inguinal hernia (09/10/23) Hx of colonoscopy Family History Father Alcoholism Hodgkin lymphoma Skin cancer Other Mental disorder Social History Household Members: Family Household Members Other:: mother, sister, cousin Housing: House Patient Tobacco Use Status: Current everyday Tobacco user Tobacco use type: Cigarette Cigarette Packs Per Day: 0.5 Cigarettes Per Day: 15 Years Smoked: 30 e-Cigarette/Vaping Use: Never Used service: No Current occupational status: employed Current occupation: [employer] Cognitive needs: No Hearing needs: No Vision needs: No Review of Systems Const All systems reviewed & are unremarkable except as noted in HPI and below Physical Exam Vital Signs: Last Vital Signs Pulse 111 H 05/27/24 09:26 BP 145/78 H 05/27/24 09:26 BMI result Body Mass Index 21.4 no acute distress Nonicteric Abdomen is soft, nontender Rectal exam: (Piedad Sheriff MA present to ham doctor): Partial thickness rectal prolapse on exam prolapsing almost 1 inches from anal opening - nonreducible manually on exam today Assessment & Plan Assessment & Plan (1) Rectal prolapse: Code(s): K62.3 - Rectal prolapse Category: Medical (2) Prolapsed internal hemorrhoids, grade 4: Code(s): K64.3 - Fourth degree hemorrhoids Category: Surgical Plan Prolapsing mucosa out of anal orifice rectal prolapse vs hemorrhoidal prolapse. Pt also with fecal incontinence likely 2/2 to this however will order defecography to r/o pelvic floor pathology. Plan: - MR defecography ordered - referral will be sent to [facility] - Will also review surgery colleagues - FOllow up after MRI Orders: Orders MR pelvis w con Today K62.3 - Rectal prolapse, R15.9 - Full incontinence of feces Coding Level of Care Code Est Pt Level 4 (56670) Diagnoses Rectal prolapse K62.3 Prolapsed internal hemorrhoids, grade 4 K64.3
[2024-05-27 09:26] VITALS: BP 145/78; PULSE 111; BMI 21.4
--- OUTSIDE RECORDS SUMMARY | 2024-05-27 09:59 | XMS_ITS | Clinical Summary ---
Author Organization [employer] [facility] Address [address] [place] [address] [address] [place] [address] Care Team Providers Care Nailhead Operator Name Role Phone Unavailable Primary Care Provider Unavailabl e Allergies Active Allergy Reactions Criticality Noted Date Comments Amoxicillin 06/16/2023 Medications No known medications Social History Tobacco Use Types Packs/Day Years Used Date Smoking Tobacco: Every Day Cigarettes Smokeless Tobacco: Never Tobacco Cessation:Ready to Q uit: Not Asked; Counseling Given: Not Answered Sex and Gender Information Value Date Recorded Sex Assigned at Male 05/19/2023 10:44 AM EST Legal Sex Male 8:32 PM EDT Gender Identity Male 05/19/2023 10:44 AM EST Sexual Orientation Straight 05/19/2023 10 :44 AM EST Last Filed Vital Signs Vital Sign Reading Time Taken Comments Blood Pressure 128/75 12/21/2023 9:50 AM EDT Pulse 95 12/21/2023 9:50 AM EDT Temperature - - Respiratory Rate - - Oxygen Saturation - - Inhaled Oxygen Concentration - - Weight - - Height - - Body Mass Index - - Plan of Treatment Upcoming Encounters Date Type Department Care Team (Late st Contact Info) Description 06/06/2024 10:00 AM EDT Office Visit [facility] [address] [place] [address] Charlotte Blevins, BDS [address] [place] [address] Health Maintenance Due Date Last Done Comments Depression Screening 1979 HIV Screening 1979 Lipid Panel 1979 SDOH Screening 1979 Alcohol/Substance Use Screening 1991 Family Planning (PISQ) 11/25/1994 Hepatitis C Screening 11/25/1997 DTaP/Tdap/Td Vaccines (1 - Tdap) 11/25/1998 Hepatitis B Vaccines (1 of 3 - 19+ 3-dose series) 11/25/1998 Pneumococcal Vaccine: Pediatrics (0 to 5 Years) and At-Risk Patients (6 to 49) Years) (1 of 2 - PCV) 11/25/1998 COVID-19 Vaccine (3 - 2023-2 5 season) 2023 01/05/2021, 12/07/2020 Influenza Vaccine (#1) 2023 Dental X-Ray: Bitewings 06/16/2024 06/16/2023 Dental Oral Exam 06/20/2024 12/21/2023 Dental Prophylaxis 06/20/2024 12/21/2023, 06/16/2023 Tobacco Screening 01/20/2025 01/21/2024 Dental X-Ray: Full Mouth 06/16/2026 06/16/2023 Zoster Vaccines (1 of 2) 11/25/2029 RSV Patients and Patients Aged 60 years or older (1 - 1-dose 75+ series) 11/25/2054 HIB Vaccines Aged Out No longer eligi ble based on patient's age to complete this topic HPV Vaccines Aged Out No longer eligi ble based on patient's age to complete this topic Hepatitis A Vaccines Aged Out No long er eligible based on patient's age to complete this topic IPV Vaccines Aged Out No longer eligi ble based on patient's age to complete this topic Meningococcal Vaccine Aged Out No nataliia harley eligible based on patient's age to complete this topic RSV under 20 months Aged Out No longe r eligible based on patient's age to complete this topic Rotavirus Vaccines Aged Out No longer eligible based on patient's age to complete this topic Procedures Procedure Name Priority Date/Time Associated Diagnosis Comments PROPHYLAXIS - ADULT Routine 12/21/2023 1 0:00 AM EDT PERIODIC ORAL EVALUATION - ESTABLISHED PATIENT Routine 12/21/2023 10:00 AM EDT INTRAORAL - COMPLETE SERIES OF RADIOGRAPHIC IMAGES Routine 06/16/2023 8:00 AM EDT from Last 3 Months or Most Recently Relevant to Health Maintenance Insurance DENTAL - [facility] PARTIAL (MEDICAID)
== END 2024-05-27 10:18 | disposition home or self-care (01) ==
PROVIDERS: PCP Nurse Practitioner Family; Visit Provider Internal Medicine
DX: K62.3 Rectal prolapse (principal); K64.3 Fourth degree hemorrhoids
CPT/HCPCS: 99214

== ENCOUNTER → 2024-05-27 09:19 | Outpatient (BNVA) | payer OTHER, SELFPAY | PROVIDERS: PCP Nurse Practitioner Family; Visit Provider Internal Medicine | DX: K62.3 Rectal prolapse (principal); K64.3 Fourth degree hemorrhoids | CPT/HCPCS: 99212 ==

== ENCOUNTER 2025-02-13 13:16 | Outpatient (REF) | payer OTHER, SELFPAY ==
[2025-02-13 15:26] LABS: Alanine Aminotransferase 15 U/L (0-40); Albumin Level 4.5 g/dL (3.5-5.0); Alkaline Phosphatase 67 U/L (39-117); Aspartate Amino Transferase 20 U/L (5-37); Total Protein 7.4 g/dL (6.5-8.0)
== END 2025-02-13 13:17 | disposition home or self-care (01) ==
LOC: HO.LAB 13:16
PROVIDERS: PCP Nurse Practitioner Family; Visit Provider Internal Medicine
DX: K62.3 Rectal prolapse (principal); K52.9 Noninfective gastroenteritis and colitis, unspecified; R15.9 Full incontinence of feces; I71.9 Aortic aneurysm of unspecified site, without rupture; Z79.899 Other long term (current) drug therapy
CPT/HCPCS: 36415; 80076; 99212

== ENCOUNTER 2025-02-13 13:16 | Outpatient (AMB) | payer OTHER, SELFPAY ==
--- NOTE | 2025-02-13 13:28 | A.OFFVIS_ITS ---
Vital Signs 02/13/25 13:34 Height 6 ft 6 in Weight 182 lb 15.739 oz BMI 21.1 BP 132/76 Blood Pressure Location Lt brachial Position Sitting Pulse 80 Intake Visit Reasons: f/u abd pain Intake Note: Chava presents in the office as a follow up for his abdominal pains. CC: States that he has a hemorrhoidal prolapse and for the past couple months - when he has a BM he has a full prolapse. Having a BM is a difficult process and he states that is runs his life and is very discomfort. He states that he ALWAYS feels like he has to have a bM And has leakage. All clear leakage. Quite a bit of blood here and there but not all the time. He states that his first hours in the AM are spent trying to full have a BM and it still does not feel out entirely. [place] Extension Agent Required: No Allergies amoxicillin Allergy (Severe, Verified 02/13/25 13:28) hives HPI Comments Details: 42y.o M with PMH of colitis who is here for GI complaints. Reports years of abd discomfort assoc stools fluctuating from hard to soft. Reports main issue is having to strain a lot to pass any bowel movement. Often has to go 3-4 times during the day to feel that rectum is completely emptied. Has been noticing clear/mucus discharge per anal for at least the last for 5 years. No stool or blood noted on underwear. 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 Also reports around 50 lb weight loss which is over many years - reports has been losing weight loss gradually over the past 5 years mainly as got a house with stairs, and started eating less, to avoid passing mucus per rectum. Given longstanding complaints, he has seen GI in the past, almost 10 years ago. Had a colonoscopy at that time, and recalls being told he had colitis but does not report any history of steroid use, or any other chronic medication use for this. Smokes a pack a day. 05/27/24: Was lost to follow up. Here to follow up on fecal incontinence. Reports no abd pain, change in bowel habits. Previous assessment consistent rectal prolapse vs ? hemorrhoidal prolapse. 02/13/25: Pt here for follow up. Reports was getting extensive dental work done in the last few months. Now that is all done he wants to refocus on fecal incontinence and prolapse vs hemorrhoids. Pelvic MRI was not approved by insurance. A referral was sent to [facility] for [facility], will follow up. Pt otherwise cont to report intermittent constipation requiring straining that leads to prolapse and leakage. Has to wear a pad. No blood in stool. [facility] Surgical History Bilateral inguinal hernia (09/10/23) Hx of colonoscopy Family History Father Alcoholism Hodgkin lymphoma Skin cancer Other Mental disorder Social History Household Members: Family Household Members Other:: mother, sister, cousin Housing: House Patient Tobacco Use Status: Current everyday Tobacco user Tobacco use type: Cigarette Cigarette Packs Per Day: 0.5 Cigarettes Per Day: 15 Years Smoked: 30 e-Cigarette/Vaping Use: Never Used service: No Current occupational status: employed Current occupation: [employer] Cognitive needs: No Hearing needs: No Vision needs: No Review of Systems Const All systems reviewed & are unremarkable except as noted in HPI and below Physical Exam Exam Exam: No apparent distress Nonicteric Abdomen soft, nondistended Alert and oriented x3, normal gait Vital Signs: Last Vital Signs Pulse 80 02/13/25 13:34 BP 132/76 02/13/25 13:34 BMI result Body Mass Index 21.1 Assessment & Plan Assessment & Plan (1) Rectal prolapse: Code(s): K62.3 - Rectal prolapse Category: Medical (2) Fecal incontinence: Code(s): R15.9 - Full incontinence of feces Category: Medical (3) Aortic aneurysm: Code(s): I71.9 - Aortic aneurysm of unspecified site, without rupture Category: Medical (4) skilled nursing current use of high dose acetaminophen: Code(s): Z79.899 - Other halfway (current) drug therapy Plan 1. Fecal incontinence and rectal prolapse vs hemorrhoids Will diamond him for diagnostic colo. MIiralax prep reviewed and instructions provided. Pt smokes cigarettes and was advised to minimize smoking x at least 7 days prior to colo to reduce resp adverse effects from anesthesia. Depending on findings may need XR defecography vs ARMS re-referral. 2. Pt also reported taking 3-4 tabs of tylenol per dose when he has rectal discomfort. Will check LFTs 3. CT from 2023 also shows 3 cm abdominal aortic aneurysm. Pt has not followed up with PCP for reimaging to surveil this and currently declines any imaging from our office. Follow up after colo. Orders: Orders Liver Panel Today K52.9 - Noninfective gastroenteritis and colitis, unspecified Referrals GI Procedure Notification K62.3 - Rectal prolapse, R15.9 - Full incontinence of feces Medications: New polyethylene glycol 3350 (Miralax) mix in 64 oz gatorade for the colonoscopy prep 238 grams PO ONCE 238 grams 0RF Coding Level of Care Code Est Pt Level 4 (32512) Diagnoses Rectal prolapse K62.3 Fecal incontinence R15.9 Aortic aneurysm I71.9 watermaster current use of high dose acetaminophen Z79.899
[2025-02-13 13:34] VITALS: BP 132/76; PULSE 80; BMI 21.1
== END 2025-02-13 14:25 | disposition home or self-care (01) ==
LOC: HO.HGI 13:17
PROVIDERS: PCP Nurse Practitioner Family; Visit Provider Internal Medicine
DX: K62.3 Rectal prolapse (principal); R15.9 Full incontinence of feces; I71.9 Aortic aneurysm of unspecified site, without rupture; Z79.899 Other long term (current) drug therapy
CPT/HCPCS: 99214